=== PATIENT | male | born 1955 | race Two or more races ===

== ENCOUNTER 2018-08-16 12:20 | Outpatient (CLI) | payer BC, OTHER ==
[2018-08-16 16:31] LABS: APPEARANCE,URINE TURBID (CLEAR); BILIRUBIN,URINE NEGATIVE (NEGATIVE); BLOOD, URINE NEGATIVE Ery/uL (NEGATIVE); COLOR,URINE YELLOW (YELLOW); KETONES,URINE NEGATIVE (NEGATIVE); LEUKOCYTE ESTERASE ,URINE NEGATIVE (NEGATIVE); NITRITE, URINE NEGATIVE (NEGATIVE); PH,URINE 5.5 (5.0-8.0); PROTEIN,URINE NEGATIVE (NEGATIVE); UGLUCOSE NEGATIVE (NEGATIVE); UROBILINOGEN,URINE 0.2 EU/dL (0.2)
[2018-08-16 16:33] LABS: BASOPHILS # (AUTO) 0.1 /CMM (0.0-0.2); BASOPHILS % (AUTO) 0.8 % (0.0-2.0); EOSINOPHILS % (AUTO) 2.8 % (0.0-6.0); HEMATOCRIT 43 % (39-51); HEMOGLOBIN 14.7 g/dL (13.5-17.5); LYMPHOCYTES # (AUTO) 1.6 /CMM (0.8-4.8); LYMPHOCYTES % (AUTO) 23.2 % (20.0-44.0); MEAN CORPUSCULAR HGB CONC 35 g/dl (31.0-36.0); MEAN CORPUSCULAR VOLUME 85 fL (80-96); MONOCYTES # (AUTO) 0.5 /CMM (0.1-1.30); MONOCYTES % (AUTO) 7.5 % (2.0-12.0); NEUTROPHILS # (AUTO) 4.4 /CMM (1.8-8.9); NEUTROPHILS % (AUTO) 65.7 % (43.0-81.0); PLATELET COUNT (AUTO) 292 /CMM (150-450); RED BLOOD CELL COUNT(AUTO) 5.01 MIL/uL (4.5-6.0); WHITE BLOOD COUNT (AUTO) 6.8 K/uL (4.3-11.0)
[2018-08-16 16:47] LABS: RBC,URINE 0-2 /HPF (0-2); WBC,URINE 0-2 /HPF (0-3)
[2018-08-16 16:48] LABS: SQUAMOUS EPITHELIAL CELL,UR Rare /HPF (None Seen); URINE AMORPHOUS URATE Many /HPF (None Seen)
[2018-08-16 16:49] LABS: BACTERIA,URINE Few /HPF (None Seen)
[2018-08-16 17:47] LABS: ALBUMIN 3.8 g/dL (3.4-5.0); CALCIUM, SERUM 8.9 mg/dL (8.5-10.1); POTASSIUM 3.8 mmol/L (3.5-5.1)
[2018-08-16 18:09] LABS: BILIRUBIN,TOTAL 0.4 mg/dL (0.2-1.0); THYROID STIMULATING HORMONE 7.5 uIU/mL (0.358-3.74)
[2018-08-16 18:10] LABS: FREE T4 (FREE THYROXINE) 0.74 ng/dL (0.76-1.46); TOTAL PROTEIN, SERUM 7.3 g/dL (6.4-8.2)
[2018-08-16 18:40] LABS: URIC ACID 4.8 mg/dL (2.6-7.2)
[2018-08-17 11:11] LABS: FOLIC ACID > 20.0 ng/mL (>3.0)
[2018-08-30 10:00] LABS: THYROID STIMULATING HORMONE 2.743 uIU/mL (0.358-3.74)
== END 2018-08-16 23:59 | disposition home or self-care (01) ==
LOC: LAB 12:20
PROVIDERS: ATTEND Legal Medicine
DX: Z00.00 Encounter for general adult medical examination without abnormal findings (principal)
CPT/HCPCS: 36415; 80053-TC; 80061-TC; 81000-TC; 82306; 82626; 82728-TC; 83540-TC; 84402; 84403; 84439-TC; 84443-TC; 84550-TC; 85025-TC

== ENCOUNTER 2018-08-30 07:44 | Outpatient (CLI) | payer BC ==
[2018-08-30 13:09] LABS: THYROID STIMULATING HORMONE 2.743 uIU/mL (0.358-3.74)
[2018-08-31 08:07] LABS: T3, FREE 3.1 pg/mL (2.0-4.4); THYROID PEROXIDASE (TPO) AB 12 IU/mL (0-34)
[2018-08-31 12:12] LABS: ACTH, PLASMA 22.4 pg/mL (7.2-63.3)
== END 2018-08-30 23:59 | disposition home or self-care (01) ==
LOC: US 07:44
PROVIDERS: ATTEND Legal Medicine
DX: E04.2 Nontoxic multinodular goiter (principal)
CPT/HCPCS: 36415; 76536-TC; 82024; 82533; 82626; 84402; 84403; 84439-TC; 84443-TC; 84481; 86376; 86800

== ENCOUNTER 2018-10-18 07:28 | Outpatient (CLI) | payer BC ==
[2018-10-18 09:15] LABS: BASOPHILS % (AUTO) 0.6 % (0.0-2.0); EOSINOPHILS % (AUTO) 3.1 % (0.0-6.0); HEMATOCRIT 45 % (39-51); HEMOGLOBIN 15.2 g/dL (13.5-17.5); LYMPHOCYTES # (AUTO) 1.8 /CMM (0.8-4.8); LYMPHOCYTES % (AUTO) 25.4 % (20.0-44.0); MEAN CORPUSCULAR HGB CONC 34 g/dl (31.0-36.0); MEAN CORPUSCULAR VOLUME 85 fL (80-96); MONOCYTES # (AUTO) 0.5 /CMM (0.1-1.30); MONOCYTES % (AUTO) 7.3 % (2.0-12.0); NEUTROPHILS # (AUTO) 4.5 /CMM (1.8-8.9); NEUTROPHILS % (AUTO) 63.6 % (43.0-81.0); PLATELET COUNT (AUTO) 280 /CMM (150-450); RED BLOOD CELL COUNT(AUTO) 5.27 MIL/uL (4.5-6.0)
[2018-10-18 09:17] LABS: ALBUMIN 3.9 g/dL (3.4-5.0); BILIRUBIN,TOTAL 0.5 mg/dL (0.2-1.0); CALCIUM, SERUM 9.4 mg/dL (8.5-10.1); CREATININE 1.2 mg/dL (0.6-1.3); POTASSIUM 3.9 mmol/L (3.5-5.1); TOTAL PROTEIN, SERUM 7.3 g/dL (6.4-8.2)
[2018-10-18 09:28] LABS: PROSTATE SPECIFIC ANTIGEN SCR 9.66 ng/mL (0.00-4.00); THYROID STIMULATING HORMONE 2.672 uIU/mL (0.358-3.74)
[2018-10-19 08:06] LABS: T3, FREE 3.3 pg/mL (2.0-4.4); THYROID PEROXIDASE (TPO) AB 11 IU/mL (0-34)
[2018-10-19 12:08] LABS: ACTH, PLASMA 26.3 pg/mL (7.2-63.3)
== END 2018-10-18 23:59 | disposition home or self-care (01) ==
LOC: LAB 07:28
PROVIDERS: ATTEND Legal Medicine
DX: E11.9 Type 2 diabetes mellitus without complications (principal); E78.5 Hyperlipidemia, unspecified; E03.9 Hypothyroidism, unspecified; D64.9 Anemia, unspecified; E55.9 Vitamin D deficiency, unspecified; E06.3 Autoimmune thyroiditis
CPT/HCPCS: 36415; 80053-TC; 80061-TC; 82024; 82306; 82533; 82626; 84153-TC; 84402; 84403; 84439-TC; 84443-TC; 84481; 85025-TC; 85652-TC; 86376; 86800

== ENCOUNTER 2019-02-03 13:50 | Outpatient (CLI) | payer BC | END 2019-02-03 23:59 | disposition home or self-care (01) | LOC: WOU 13:50 | PROVIDERS: ATTEND Surgery | DX: Z01.818 Encounter for other preprocedural examination (principal); K43.9 Ventral hernia without obstruction or gangrene; R10.9 Unspecified abdominal pain | CPT/HCPCS: G0463; J0690; J2405; J2704; J2710; J2765; J3490 ==

== ENCOUNTER 2019-05-05 12:58 | Emergency (ER) | payer BC, OTHER ==
[~2019-05-05] VITALS: Ht 170.2 cm; Wt 79.8 kg
--- NOTE | 2019-05-05 13:04 | NUR ---
lac on the left eye brow s/p syncopal episode midnight, pt alert, awake, -sob, nad noted, pt on monitor, vss, nad noted, pending md malik
[2019-05-05 13:43] LABS: BASOPHILS % (AUTO) 1.1 % (0.0-2.0); EOSINOPHILS % (AUTO) 0.7 % (0.0-6.0); HEMATOCRIT 45 % (39-51); HEMOGLOBIN 15.1 g/dL (13.5-17.5); LYMPHOCYTES # (AUTO) 0.9 /CMM (0.8-4.8); MEAN CORPUSCULAR HGB CONC 34 g/dl (31.0-36.0); MEAN CORPUSCULAR VOLUME 85 fL (80-96); MONOCYTES # (AUTO) 0.5 /CMM (0.1-1.30); MONOCYTES % (AUTO) 13.1 % (2.0-12.0); NEUTROPHILS # (AUTO) 2.5 /CMM (1.8-8.9); NEUTROPHILS % (AUTO) 63.1 % (43.0-81.0); PLATELET COUNT (AUTO) 227 /CMM (150-450); RED BLOOD CELL COUNT(AUTO) 5.31 MIL/uL (4.5-6.0); WHITE BLOOD COUNT (AUTO) 3.9 K/uL (4.3-11.0)
[2019-05-05 13:54] LABS: CALCIUM, SERUM 8.9 mg/dL (8.5-10.1); CARBON DIOXIDE 29 mmol/L (21-32); CHLORIDE 104 mmol/L (98-107); CREATININE 1.3 mg/dL (0.6-1.3); GLUCOSE 113 mg/dL (74-106); POTASSIUM 4.5 mmol/L (3.5-5.1); SODIUM SERUM 141 mmol/L (136-145); UREA NITROGEN, BLOOD 22 mg/dL (7-18)
--- NOTE | 2019-05-05 14:30 | NUR ---
Patient discharged to home in stable condition. Written and verbal after care instructions given. Patient verbalizes understanding of instruction. IV removed. Catheter intact and site benign. Pressure and 4x4 applied to site. No bleeding noted.
[2019-05-05 14:31] VITALS: BP 119/69
== END 2019-05-05 14:32 | disposition home or self-care (01) ==
LOC: ER 13:00
DX: S01.81XA Laceration without foreign body of other part of head, initial encounter (principal); R55 Syncope and collapse; W18.39XA Other fall on same level, initial encounter; Y93.89 Activity, other specified; Y92.89 Other specified places as the place of occurrence of the external cause; Y99.8 Other external cause status
CPT/HCPCS: 36415; 80048-TC; 84443-TC; 84484-TC; 85025-TC

== ENCOUNTER 2019-05-19 14:45 | Outpatient (CLI) | payer BC, OTHER | END 2019-05-19 23:59 | disposition home or self-care (01) | LOC: WOU 14:45 | PROVIDERS: ATTEND Surgery | DX: K43.9 Ventral hernia without obstruction or gangrene (principal); R10.9 Unspecified abdominal pain | CPT/HCPCS: G0463 ==

== ENCOUNTER 2019-06-02 11:03 | Outpatient (CLI) | payer BC ==
[2019-06-02 12:44] LABS: BASOPHILS % (AUTO) 0.6 % (0.0-2.0); HEMATOCRIT 44 % (39-51); HEMOGLOBIN 14.6 g/dL (13.5-17.5); LYMPHOCYTES # (AUTO) 1.5 /CMM (0.8-4.8); LYMPHOCYTES % (AUTO) 22.5 % (20.0-44.0); MEAN CORPUSCULAR HGB CONC 34 g/dl (31.0-36.0); MEAN CORPUSCULAR VOLUME 85 fL (80-96); MONOCYTES # (AUTO) 0.5 /CMM (0.1-1.30); MONOCYTES % (AUTO) 7.9 % (2.0-12.0); NEUTROPHILS # (AUTO) 4.3 /CMM (1.8-8.9); PLATELET COUNT (AUTO) 249 /CMM (150-450); RED BLOOD CELL COUNT(AUTO) 5.14 MIL/uL (4.5-6.0); WHITE BLOOD COUNT (AUTO) 6.6 K/uL (4.3-11.0)
[2019-06-02 13:03] LABS: APPEARANCE,URINE CLEAR (CLEAR); BILIRUBIN,URINE NEGATIVE (NEGATIVE); BLOOD, URINE NEGATIVE Ery/uL (NEGATIVE); COLOR,URINE YELLOW (YELLOW); KETONES,URINE NEGATIVE (NEGATIVE); LEUKOCYTE ESTERASE ,URINE NEGATIVE (NEGATIVE); NITRITE, URINE NEGATIVE (NEGATIVE); PH,URINE 5.5 (5.0-8.0); PROTEIN,URINE NEGATIVE (NEGATIVE); UGLUCOSE NEGATIVE (NEGATIVE); UROBILINOGEN,URINE 0.2 EU/dL (0.2)
[2019-06-02 13:10] LABS: ALANINE AMINOTRANSFERASE 38 U/L (12-78); ALBUMIN 3.8 g/dL (3.4-5.0); ALKALINE PHOSPHATASE 72 U/L (46-116); AMYLASE 75 U/L (25-115); ASPARTATE AMINOTRANSFERASE 18 U/L (15-37); BILIRUBIN,TOTAL 0.5 mg/dL (0.2-1.0); CARBON DIOXIDE 30 mmol/L (21-32); CHLORIDE 103 mmol/L (98-107); CREATININE 1.1 mg/dL (0.6-1.3); GLUCOSE 91 mg/dL (74-106); LIPASE 282 U/L (73-393); POTASSIUM 3.9 mmol/L (3.5-5.1); SODIUM SERUM 139 mmol/L (136-145); UREA NITROGEN, BLOOD 21 mg/dL (7-18)
[2019-06-02 13:11] LABS: IRON, SERUM 72 ug/dl (50-175); TOTAL IRON BINDING CAPACITY 326 ug/dl (250-450)
[2019-06-02 13:20] LABS: CHOLESTEROL 214 mg/dL (<200); FERRITIN 179 ng/mL (8-388); HDL CHOLESTEROL 61 mg/dL (40-60); LDL 135 mg/dL (0-99); PROSTATE SPECIFIC ANTIGEN SCR 12.37 ng/mL (0.00-4.00); THYROID STIMULATING HORMONE 2.375 uIU/mL (0.358-3.74); TRIGLYCERIDES 133 mg/dL (30-150); URIC ACID 3.9 mg/dL (2.6-7.2)
[2019-06-02 13:21] LABS: C-REACTIVE PROTEIN < 0.2 mg/dL (0.0-0.9)
[2019-06-03 05:06] LABS: THYROID PEROXIDASE (TPO) AB 12 IU/mL (0-34)
[2019-06-03 10:13] LABS: FOLIC ACID 15.9 ng/mL (>3.0)
== END 2019-06-02 23:59 | disposition home or self-care (01) ==
LOC: LAB 11:03
PROVIDERS: ATTEND Legal Medicine
DX: Z01.818 Encounter for other preprocedural examination (principal); K43.9 Ventral hernia without obstruction or gangrene; I10 Essential (primary) hypertension; E78.5 Hyperlipidemia, unspecified; E03.9 Hypothyroidism, unspecified; D64.9 Anemia, unspecified; N40.0 Benign prostatic hyperplasia without lower urinary tract symptoms; E55.9 Vitamin D deficiency, unspecified
CPT/HCPCS: 36415; 71046; 80053-TC; 80061-TC; 81000-TC; 82150-TC; 82306; 82626; 82728-TC; 83540-TC; 83690-TC; 84153-TC; 84402; 84403; 84439-TC; 84443-TC; 84550-TC; 85025-TC; 85652-TC; 86140-TC; 86376; 86800; 87086-TC

== ENCOUNTER 2019-06-17 06:36 | Day surgery (SDC) | payer BC ==
[~2019-06-17 06:36] MED LIST: ACETAMINOPHEN ES 500 MG TABLET ONE
[2019-06-17] MEDS ORDERED: FENTANYL PF 250MCG/5ML AMPUL ONE (08:25)
[2019-06-17] MEDS ORDERED: MIDAZOLAM HCL 2 MG/2ML VIAL ONE (08:25)
[2019-06-17] MEDS ORDERED: FENTANYL PF 100MCG/2ML AMPUL ONE (08:25)
[2019-06-17] MEDS ORDERED: ROCURONIUM BROMIDE 50 MG/5 ML ONE (08:26)
[2019-06-17] MEDS ORDERED: FAMOTIDINE/PF INJ 20 MG/2 ML VIAL IV ONE (08:26)
[2019-06-17] MEDS ORDERED: BUPIVACAINE MPF 0.5% W/EPI INJ 30 ML VIAL ONE (08:42)
[2019-06-17] MEDS ORDERED: LIDOCAINE HCL/PF 1% 30 ML SDV ONE (08:42)
[2019-06-17] MEDS ORDERED: ACETAMINOPHEN 325 MG TABLET PO PRN (10:00)
[2019-06-17] MEDS ORDERED: HYDROCODONE/APAP 5/325MG 1 EACH TABLET PO PRN (10:00)
[2019-06-17] MEDS ORDERED: MORPHINE SULFATE INJ 2 MG/ML DISP.SYRIN IV PRN (10:00)
[2019-06-17] MEDS ORDERED: IBUPROFEN 600 MG TABLET PO PRN (10:00)
[2019-06-17] MEDS ORDERED: ONDANSETRON HCL/PF 4 MG/2 ML VIAL IVP PRN (10:00)
[2019-06-17] MEDS ORDERED: ONDANSETRON HCL/PF 4 MG/2 ML VIAL ONE (12:32)
== END 2019-06-17 12:59 | disposition home or self-care (01) ==
LOC: DS 06:36
PROVIDERS: ATTEND Surgery
DX: K43.9 Ventral hernia without obstruction or gangrene (principal); E03.9 Hypothyroidism, unspecified; E78.5 Hyperlipidemia, unspecified; Z88.2 Allergy status to sulfonamides; Z88.1 Allergy status to other antibiotic agents; Z79.899 Other long term (current) drug therapy
CPT/HCPCS: 36415; 49560; 49568; 82962; 85610; 85730; 88302; C1781; J2250; J2405; J3010 ×2; J3490 ×3; J0690; J2704; J2710; J2765

== ENCOUNTER 2019-06-30 14:15 | Outpatient (CLI) | payer BC | END 2019-06-30 23:59 | disposition home or self-care (01) | LOC: WOU 14:15 | PROVIDERS: ATTEND Surgery | DX: Z48.815 Encounter for surgical aftercare following surgery on the digestive system (principal); R10.9 Unspecified abdominal pain | CPT/HCPCS: G0463 ==

== ENCOUNTER 2019-08-11 14:05 | Outpatient (CLI) | payer BC | END 2019-08-11 23:59 | disposition home or self-care (01) | LOC: WOU 14:05 | PROVIDERS: ATTEND Surgery | DX: Z48.815 Encounter for surgical aftercare following surgery on the digestive system (principal); R10.9 Unspecified abdominal pain | CPT/HCPCS: G0463 ==

== ENCOUNTER 2019-09-08 13:43 | Outpatient (CLI) | payer BC ==
[2019-09-08 14:34] LABS: APPEARANCE,URINE CLEAR (CLEAR); BILIRUBIN,URINE NEGATIVE (NEGATIVE); BLOOD, URINE NEGATIVE Ery/uL (NEGATIVE); COLOR,URINE YELLOW (YELLOW); KETONES,URINE NEGATIVE (NEGATIVE); LEUKOCYTE ESTERASE ,URINE NEGATIVE (NEGATIVE); NITRITE, URINE NEGATIVE (NEGATIVE); PH,URINE 5.5 (5.0-8.0); PROTEIN,URINE NEGATIVE (NEGATIVE); UGLUCOSE NEGATIVE (NEGATIVE); UROBILINOGEN,URINE 0.2 EU/dL (0.2)
[2019-09-08 14:40] LABS: BASOPHILS # (AUTO) 0.2 /CMM (0.0-0.2); BASOPHILS % (AUTO) 2.4 % (0.0-2.0); EOSINOPHILS % (AUTO) 2.6 % (0.0-6.0); HEMATOCRIT 45 % (39-51); LYMPHOCYTES # (AUTO) 1.7 /CMM (0.8-4.8); LYMPHOCYTES % (AUTO) 22.8 % (20.0-44.0); MEAN CORPUSCULAR HGB CONC 34 g/dl (31.0-36.0); MEAN CORPUSCULAR VOLUME 85 fL (80-96); MONOCYTES # (AUTO) 0.5 /CMM (0.1-1.30); MONOCYTES % (AUTO) 6.9 % (2.0-12.0); NEUTROPHILS % (AUTO) 65.3 % (43.0-81.0); PLATELET COUNT (AUTO) 280 /CMM (150-450); RED BLOOD CELL COUNT(AUTO) 5.21 MIL/uL (4.5-6.0); WHITE BLOOD COUNT (AUTO) 7.6 K/uL (4.3-11.0)
[2019-09-08 14:50] LABS: BILIRUBIN,TOTAL 0.4 mg/dL (0.2-1.0); CREATININE 1.2 mg/dL (0.6-1.3); POTASSIUM 3.7 mmol/L (3.5-5.1); TOTAL PROTEIN, SERUM 7.4 g/dL (6.4-8.2)
[2019-09-08 15:04] LABS: PROSTATE SPECIFIC ANTIGEN SCR 11.23 ng/mL (0.00-4.00); THYROID STIMULATING HORMONE 2.63 uIU/mL (0.358-3.74); URIC ACID 4.2 mg/dL (2.6-7.2)
[2019-09-09 08:06] LABS: T3, FREE 2.8 pg/mL (2.0-4.4); THYROID PEROXIDASE (TPO) AB 9 IU/mL (0-34)
== END 2019-09-08 23:59 | disposition home or self-care (01) ==
LOC: WOU 13:43
PROVIDERS: ATTEND Surgery
DX: Z00.00 Encounter for general adult medical examination without abnormal findings (principal); Z48.815 Encounter for surgical aftercare following surgery on the digestive system; N40.0 Benign prostatic hyperplasia without lower urinary tract symptoms; E11.9 Type 2 diabetes mellitus without complications; E03.9 Hypothyroidism, unspecified; D64.9 Anemia, unspecified
CPT/HCPCS: 36415; 80053-TC; 80061-TC; 81000-TC; 82306; 82533; 82728-TC; 83540-TC; 84153-TC; 84402; 84403; 84439-TC; 84443-TC; 84481; 84550-TC; 85025-TC; 86376; 86800; 87086-TC; G0463

== ENCOUNTER → 2019-09-26 | Outpatient (CLI) | payer BC | END | disposition home or self-care (01) | LOC: MRI 10:14 | PROVIDERS: ATTEND Legal Medicine | DX: S43.432A Superior glenoid labrum lesion of left shoulder, initial encounter (principal); M65.30 Trigger finger, unspecified finger; M19.012 Primary osteoarthritis, left shoulder; M75.82 Other shoulder lesions, left shoulder; X58.XXXA Exposure to other specified factors, initial encounter; Y93.89 Activity, other specified; Y92.89 Other specified places as the place of occurrence of the external cause; Y99.8 Other external cause status | CPT/HCPCS: 73221-TC ==

== ENCOUNTER 2019-10-22 16:09 | Outpatient (CLI) | payer BC ==
[2019-10-22 16:32] LABS: APPEARANCE,URINE SL CLOUDY (CLEAR); BILIRUBIN,URINE NEGATIVE (NEGATIVE); BLOOD, URINE NEGATIVE Ery/uL (NEGATIVE); COLOR,URINE YELLOW (YELLOW); KETONES,URINE NEGATIVE (NEGATIVE); LEUKOCYTE ESTERASE ,URINE NEGATIVE (NEGATIVE); NITRITE, URINE NEGATIVE (NEGATIVE); PROTEIN,URINE NEGATIVE (NEGATIVE); UGLUCOSE NEGATIVE (NEGATIVE)
[2019-10-22 16:38] LABS: BACTERIA,URINE Few /HPF (None Seen); RBC,URINE 0-2 /HPF (0-2); SQUAMOUS EPITHELIAL CELL,UR Few /HPF (None Seen); URINE AMORPHOUS PHOSPHATES Moderate /HPF (None Seen); WBC,URINE 0-2 /HPF (0-3)
== END 2019-10-22 23:59 | disposition home or self-care (01) ==
LOC: LAB 16:09
PROVIDERS: ATTEND Legal Medicine
DX: R30.0 Dysuria (principal)
CPT/HCPCS: 81000-TC; 87070-TC; 87086-TC

== ENCOUNTER 2020-04-09 13:59 | Outpatient (CLI) | payer BC ==
[2020-04-09 16:19] LABS: BASOPHILS # (AUTO) 0.1 /CMM (0.0-0.2); BASOPHILS % (AUTO) 1.2 % (0.0-2.0); EOSINOPHILS % (AUTO) 2.5 % (0.0-6.0); HEMATOCRIT 45 % (39-51); LYMPHOCYTES # (AUTO) 1.6 /CMM (0.8-4.8); LYMPHOCYTES % (AUTO) 21.4 % (20.0-44.0); MEAN CORPUSCULAR HGB CONC 34 g/dl (31.0-36.0); MEAN CORPUSCULAR VOLUME 84 fL (80-96); MONOCYTES # (AUTO) 0.6 /CMM (0.1-1.30); MONOCYTES % (AUTO) 8.1 % (2.0-12.0); NEUTROPHILS # (AUTO) 4.9 /CMM (1.8-8.9); NEUTROPHILS % (AUTO) 66.8 % (43.0-81.0); PLATELET COUNT (AUTO) 286 /CMM (150-450); WHITE BLOOD COUNT (AUTO) 7.3 K/uL (4.3-11.0)
[2020-04-09 16:33] LABS: BILIRUBIN,URINE NEGATIVE (NEGATIVE); BLOOD, URINE NEGATIVE Ery/uL (NEGATIVE); COLOR,URINE YELLOW (YELLOW); LEUKOCYTE ESTERASE ,URINE NEGATIVE (NEGATIVE); NITRITE, URINE NEGATIVE (NEGATIVE); PH,URINE 6.5 (5.0-8.0); PROTEIN,URINE NEGATIVE (NEGATIVE); UGLUCOSE NEGATIVE (NEGATIVE); UROBILINOGEN,URINE 0.2 EU/dL (0.2)
[2020-04-09 16:38] LABS: ALBUMIN 3.9 g/dL (3.4-5.0); BILIRUBIN,TOTAL 0.5 mg/dL (0.2-1.0); CALCIUM, SERUM 8.8 mg/dL (8.5-10.1); POTASSIUM 3.8 mmol/L (3.5-5.1); TOTAL PROTEIN, SERUM 7.3 g/dL (6.4-8.2)
[2020-04-09 16:49] LABS: BACTERIA,URINE None seen /HPF (None Seen); RBC,URINE 0-2 /HPF (0-2); SQUAMOUS EPITHELIAL CELL,UR 0-2 /HPF (None Seen); WBC,URINE 0-2 /HPF (0-3)
[2020-04-09 16:50] LABS: URINE AMORPHOUS URATE Moderate /HPF (None Seen)
[2020-04-09 16:54] LABS: C-REACTIVE PROTEIN 0.3 mg/dL (0.0-0.9); FREE T4 (FREE THYROXINE) 0.89 ng/dL (0.76-1.46); PROSTATE SPECIFIC ANTIGEN SCR 10.88 ng/mL (0.00-4.00); THYROID STIMULATING HORMONE 1.994 uIU/mL (0.358-3.74); URIC ACID 4.5 mg/dL (2.6-7.2)
[2020-04-11 09:12] LABS: T3, FREE 3.2 pg/mL (2.0-4.4)
== END 2020-04-09 23:59 | disposition home or self-care (01) ==
LOC: LAB 13:59
PROVIDERS: ATTEND Legal Medicine
DX: I12.9 Hypertensive chronic kidney disease with stage 1 through stage 4 chronic kidney disease, or unspecified chronic kidney disease (principal); E11.22 Type 2 diabetes mellitus with diabetic chronic kidney disease; N18.9 Chronic kidney disease, unspecified; E03.9 Hypothyroidism, unspecified; D64.9 Anemia, unspecified; N40.0 Benign prostatic hyperplasia without lower urinary tract symptoms; E55.9 Vitamin D deficiency, unspecified; E29.1 Testicular hypofunction; Z00.00 Encounter for general adult medical examination without abnormal findings
CPT/HCPCS: 80053-TC; 80061-TC; 81001; 82306; 83540-TC; 84153-TC; 84154-TC; 84402; 84403; 84439-TC; 84443-TC; 84481; 84550-TC; 85025-TC; 85652-TC; 86140-TC

== ENCOUNTER 2020-04-15 12:02 | Outpatient (CLI) | payer BC | END 2020-04-15 23:59 | disposition home or self-care (01) | LOC: MRI 12:02 | PROVIDERS: ATTEND Legal Medicine | DX: S73.102A Unspecified sprain of left hip, initial encounter (principal); M21.372 Foot drop, left foot; M47.817 Spondylosis without myelopathy or radiculopathy, lumbosacral region; M48.07 Spinal stenosis, lumbosacral region; M51.27 Other intervertebral disc displacement, lumbosacral region; X58.XXXA Exposure to other specified factors, initial encounter; Y93.89 Activity, other specified; Y92.89 Other specified places as the place of occurrence of the external cause; Y99.8 Other external cause status | CPT/HCPCS: 72148-TC; 73721-TC ==

== ENCOUNTER 2020-11-26 12:58 | Outpatient (CLI) | payer BC ==
[2020-11-26 14:13] LABS: BASOPHILS % (AUTO) 0.6 % (0.0-2.0); EOSINOPHILS % (AUTO) 1.8 % (0.0-6.0); HEMATOCRIT 45 % (39-51); LYMPHOCYTES # (AUTO) 1.6 K/uL (0.8-4.8); LYMPHOCYTES % (AUTO) 19.4 % (20.0-44.0); MEAN CORPUSCULAR HGB CONC 33 g/dl (31.0-36.0); MEAN CORPUSCULAR VOLUME 86 fL (80-96); MONOCYTES # (AUTO) 0.5 K/uL (0.1-1.30); MONOCYTES % (AUTO) 5.8 % (2.0-12.0); NEUTROPHILS # (AUTO) 5.9 K/uL (1.8-8.9); NEUTROPHILS % (AUTO) 72.4 % (43.0-81.0); PLATELET COUNT (AUTO) 291 K/uL (150-450); RED BLOOD CELL COUNT(AUTO) 5.26 MIL/uL (4.5-6.0); WHITE BLOOD COUNT (AUTO) 8.1 K/uL (4.3-11.0)
[2020-11-26 14:33] LABS: BILIRUBIN,URINE NEGATIVE (NEGATIVE); COLOR,URINE YELLOW (YELLOW); LEUKOCYTE ESTERASE ,URINE NEGATIVE (NEGATIVE); NITRITE, URINE NEGATIVE (NEGATIVE); PROTEIN,URINE NEGATIVE (NEGATIVE); UGLUCOSE NEGATIVE (NEGATIVE); UROBILINOGEN,URINE 0.2 EU/dL (0.2)
[2020-11-26 14:59] LABS: IRON, SERUM 75 ug/dl (50-175); TOTAL IRON BINDING CAPACITY 316 ug/dl (250-450)
[2020-11-26 15:26] LABS: ALBUMIN 3.7 g/dL (3.4-5.0); ALKALINE PHOSPHATASE 82 U/L (46-116); ASPARTATE AMINOTRANSFERASE 21 U/L (15-37); BILIRUBIN,TOTAL 0.7 mg/dL (0.2-1.0); CALCIUM, SERUM 8.7 mg/dL (8.5-10.1); CARBON DIOXIDE 31 mmol/L (21-32); CHLORIDE 105 mmol/L (98-107); CREATININE 1.2 mg/dL (0.6-1.3); GLUCOSE 148 mg/dL (74-106); POTASSIUM 3.7 mmol/L (3.5-5.1); SODIUM SERUM 145 mmol/L (136-145); TOTAL PROTEIN, SERUM 7.4 g/dL (6.4-8.2); UREA NITROGEN, BLOOD 16 mg/dL (7-18)
[2020-11-26 15:32] LABS: CHOLESTEROL 231 mg/dL (<200); FERRITIN 150 ng/mL (8-388); FREE T4 (FREE THYROXINE) 0.89 ng/dL (0.76-1.46); HDL CHOLESTEROL 65 mg/dL (40-60); LDL 145 mg/dL (0-99); PROSTATE SPECIFIC ANTIGEN SCR 11.47 ng/mL (0.00-4.00); THYROID STIMULATING HORMONE 2.588 uIU/mL (0.358-3.74); TRIGLYCERIDES 128 mg/dL (30-150); URIC ACID 4.3 mg/dL (2.6-7.2)
[2020-11-26 15:36] LABS: ALANINE AMINOTRANSFERASE 27 U/L (12-78)
[2020-11-26 15:44] LABS: C-REACTIVE PROTEIN < 0.2 mg/dL (0.0-0.9)
[2020-11-28 11:06] LABS: T3, FREE 3.2 pg/mL (2.0-4.4); THYROID PEROXIDASE (TPO) AB <8 IU/mL (0-34)
== END 2020-11-26 23:59 | disposition home or self-care (01) ==
LOC: LAB 12:58
PROVIDERS: ATTEND Legal Medicine
DX: E78.5 Hyperlipidemia, unspecified (principal); Z00.00 Encounter for general adult medical examination without abnormal findings
CPT/HCPCS: 36415; 80053-TC; 80061-TC; 82306; 82607-TC; 82626; 82728-TC; 83540-TC; 84153-TC; 84402; 84403; 84439-TC; 84443-TC; 84481; 84550-TC; 85025-TC; 85652-TC; 86140-TC; 86376; 87086-TC

== ENCOUNTER 2021-06-24 11:11 | Outpatient (CLI) | payer BC ==
[2021-06-24 12:25] LABS: BASOPHILS # (AUTO) 0.1 K/uL (0.0-0.2); BASOPHILS % (AUTO) 0.7 % (0.0-2.0); EOSINOPHILS % (AUTO) 1.7 % (0.0-6.0); HEMATOCRIT 45 % (39-51); LYMPHOCYTES # (AUTO) 1.7 K/uL (0.8-4.8); LYMPHOCYTES % (AUTO) 24.2 % (20.0-44.0); MEAN CORPUSCULAR HGB CONC 34 g/dl (31.0-36.0); MEAN CORPUSCULAR VOLUME 84 fL (80-96); MONOCYTES # (AUTO) 0.4 K/uL (0.1-1.30); NEUTROPHILS # (AUTO) 4.7 K/uL (1.8-8.9); NEUTROPHILS % (AUTO) 67.4 % (43.0-81.0); PLATELET COUNT (AUTO) 266 K/uL (150-450); RED BLOOD CELL COUNT(AUTO) 5.29 MIL/uL (4.5-6.0)
[2021-06-24 13:06] LABS: FREE T4 (FREE THYROXINE) 0.86 ng/dL (0.76-1.46); PROSTATE SPECIFIC ANTIGEN SCR 13.74 ng/mL (0.00-4.00); THYROID STIMULATING HORMONE 3.329 uIU/mL (0.358-3.74); URIC ACID 4.4 mg/dL (2.6-7.2)
[2021-06-24 13:10] LABS: BILIRUBIN,URINE NEGATIVE (NEGATIVE); COLOR,URINE YELLOW (YELLOW); LEUKOCYTE ESTERASE ,URINE NEGATIVE (NEGATIVE); NITRITE, URINE NEGATIVE (NEGATIVE); PH,URINE 5.5 (5.0-8.0); PROTEIN,URINE NEGATIVE (NEGATIVE); UGLUCOSE NEGATIVE (NEGATIVE); UROBILINOGEN,URINE 0.2 EU/dL (0.2)
[2021-06-24 13:13] LABS: ALBUMIN 4.1 g/dL (3.4-5.0); BILIRUBIN,TOTAL 0.6 mg/dL (0.2-1.0); CREATININE 1.1 mg/dL (0.6-1.3); TOTAL PROTEIN, SERUM 7.8 g/dL (6.4-8.2)
== END 2021-06-24 23:59 | disposition home or self-care (01) ==
LOC: LAB 11:11
PROVIDERS: ATTEND Legal Medicine
DX: E11.9 Type 2 diabetes mellitus without complications (principal); N40.0 Benign prostatic hyperplasia without lower urinary tract symptoms; E55.9 Vitamin D deficiency, unspecified; E78.5 Hyperlipidemia, unspecified; E03.9 Hypothyroidism, unspecified; D64.9 Anemia, unspecified; Z00.00 Encounter for general adult medical examination without abnormal findings
CPT/HCPCS: 80053-TC; 80061-TC; 81001; 82306; 82607-TC; 83540-TC; 84153-TC; 84402; 84403; 84439-TC; 84443-TC; 84550-TC; 85025-TC; 86592; 86694; 87086-TC; 87491; 87591; 87806

== ENCOUNTER → 2021-10-07 | Outpatient (CLI) | payer BC | END | disposition home or self-care (01) | LOC: MRI 11:28 | PROVIDERS: ATTEND Legal Medicine | DX: M19.012 Primary osteoarthritis, left shoulder (principal); R51.9 Headache, unspecified; M25.512 Pain in left shoulder | CPT/HCPCS: 70551-TC; 73221-TC ==

== ENCOUNTER 2021-10-14 14:55 | Emergency (ER) | payer BC, OTHER ==
[~2021-10-14] VITALS: Ht 177.8 cm; Wt 81.6 kg
--- NOTE | 2021-10-14 14:59 | NUR ---
BIBS C/O DULL HEADACHE, DIZZINESS AND RAPID HR "OVER A HUNDRED" STARTED THIS MORNING. DENIES CHEST PAIN. TO ER BED 7, HOOKED TO SUPERVISOR OF INSTRUCTION, NOTED SINUS TACHYCARDIC, CHANGED TO HOSP GOWN,W ARM BLANKET PROVIDED. AWAITING MD CALLEJAS
--- NOTE | 2021-10-14 15:17 | NUR ---
DR BENTON AT BEDSIDE
[2021-10-14] MEDS ORDERED: IV NS 0.9% 1,000 ML BAG IV ONE (15:30)
--- NOTE | 2021-10-14 15:31 | NUR ---
X-RAY TECH. AT BED SIDE
[2021-10-14 15:48] LABS: BASOPHILS # (AUTO) 0.1 K/uL (0.0-0.2); BASOPHILS % (AUTO) 0.6 % (0.0-2.0); EOSINOPHILS % (AUTO) 0.6 % (0.0-6.0); HEMATOCRIT 42 % (39-51); HEMOGLOBIN 14.2 g/dL (13.5-17.5); LYMPHOCYTES # (AUTO) 0.5 K/uL (0.8-4.8); LYMPHOCYTES % (AUTO) 4.7 % (20.0-44.0); MEAN CORPUSCULAR HGB CONC 34 g/dl (31.0-36.0); MEAN CORPUSCULAR VOLUME 83 fL (80-96); MONOCYTES # (AUTO) 0.9 K/uL (0.1-1.30); MONOCYTES % (AUTO) 8.7 % (2.0-12.0); NEUTROPHILS # (AUTO) 8.7 K/uL (1.8-8.9); NEUTROPHILS % (AUTO) 85.4 % (43.0-81.0); PLATELET COUNT (AUTO) 254 K/uL (150-450); RED BLOOD CELL COUNT(AUTO) 5.07 MIL/uL (4.5-6.0); WHITE BLOOD COUNT (AUTO) 10.2 K/uL (4.3-11.0)
--- NOTE | 2021-10-14 15:48 | NUR ---
BLOOD DRAWN, RAPID ANTIGEN SWAB SENT TO LAB
[2021-10-14 16:34] LABS: ALBUMIN 4.1 g/dL (3.4-5.0); BILIRUBIN,DIRECT 0.1 mg/dL (0.0-0.2); BILIRUBIN,TOTAL 0.4 mg/dL (0.2-1.0); CALCIUM, SERUM 9.2 mg/dL (8.5-10.1); CREATININE 1.1 mg/dL (0.6-1.3); POTASSIUM 3.9 mmol/L (3.5-5.1); TOTAL PROTEIN, SERUM 7.6 g/dL (6.4-8.2)
--- NOTE | 2021-10-14 18:50 | NUR ---
Patient discharged to home in stable condition. Written and verbal after care instructions given. Patient verbalizes understanding of instruction.
[2021-10-14 19:17] VITALS: BP 126/75
== END 2021-10-14 18:50 | disposition home or self-care (01) ==
LOC: ER 15:00
DX: R00.2 Palpitations (principal); E86.0 Dehydration
CPT/HCPCS: 36415; 70450; 71045; 80048; 80076; 82962; 85025; 85730; 87804 ×2; 93005; 96360; 99285; J7030

== ENCOUNTER 2022-04-28 07:04 | Outpatient (CLI) | payer BC, OTHER ==
[2022-04-28 09:39] LABS: BASOPHILS % (AUTO) 0.4 % (0.0-2.0); EOSINOPHILS % (AUTO) 2.7 % (0.0-6.0); HEMATOCRIT 43 % (39-51); HEMOGLOBIN 14.2 g/dL (13.5-17.5); LYMPHOCYTES # (AUTO) 1.8 K/uL (0.8-4.8); LYMPHOCYTES % (AUTO) 25.2 % (20.0-44.0); MEAN CORPUSCULAR HGB CONC 33 g/dl (31.0-36.0); MEAN CORPUSCULAR VOLUME 85 fL (80-96); MONOCYTES # (AUTO) 0.5 K/uL (0.1-1.30); MONOCYTES % (AUTO) 7.4 % (2.0-12.0); NEUTROPHILS # (AUTO) 4.6 K/uL (1.8-8.9); NEUTROPHILS % (AUTO) 64.3 % (43.0-81.0); PLATELET COUNT (AUTO) 277 K/uL (150-450); RED BLOOD CELL COUNT(AUTO) 5.05 MIL/uL (4.5-6.0); WHITE BLOOD COUNT (AUTO) 7.2 K/uL (4.3-11.0)
[2022-04-28 11:01] LABS: PROSTATE SPECIFIC ANTIGEN SCR 18.5 ng/mL (0.00-4.00); URIC ACID 4.6 mg/dL (2.6-7.2)
[2022-04-28 11:12] LABS: ALBUMIN 3.8 g/dL (3.4-5.0); BILIRUBIN,TOTAL 0.5 mg/dL (0.2-1.0); CALCIUM, SERUM 8.7 mg/dL (8.5-10.1); CREATININE 1.2 mg/dL (0.6-1.3); POTASSIUM 4.2 mmol/L (3.5-5.1)
[2022-04-28 11:33] LABS: BILIRUBIN,URINE NEGATIVE (NEGATIVE); COLOR,URINE YELLOW (YELLOW); LEUKOCYTE ESTERASE ,URINE NEGATIVE (NEGATIVE); NITRITE, URINE NEGATIVE (NEGATIVE); PH,URINE 5.5 (5.0-8.0); PROTEIN,URINE NEGATIVE (NEGATIVE); UGLUCOSE NEGATIVE (NEGATIVE); UROBILINOGEN,URINE 0.2 EU/dL (0.2)
== END 2022-04-28 23:59 | disposition home or self-care (01) ==
LOC: LAB 07:04
PROVIDERS: ATTEND Legal Medicine
DX: Z00.00 Encounter for general adult medical examination without abnormal findings (principal); R53.1 Weakness; D64.9 Anemia, unspecified; I10 Essential (primary) hypertension; N40.0 Benign prostatic hyperplasia without lower urinary tract symptoms; E55.9 Vitamin D deficiency, unspecified; E03.9 Hypothyroidism, unspecified
CPT/HCPCS: 36415; 80053-TC; 80061-TC; 82306; 82607-TC; 82728-TC; 83540-TC; 84153-TC; 84402; 84403; 84439-TC; 84550-TC; 85025-TC; 87086-TC

== ENCOUNTER 2022-08-18 12:00 | Outpatient (CLI) | payer BC, OTHER ==
[2022-08-18 16:33] LABS: BILIRUBIN,URINE NEGATIVE (NEGATIVE); COLOR,URINE YELLOW (YELLOW); LEUKOCYTE ESTERASE ,URINE NEGATIVE (NEGATIVE); NITRITE, URINE NEGATIVE (NEGATIVE); PROTEIN,URINE NEGATIVE (NEGATIVE); UGLUCOSE NEGATIVE (NEGATIVE); UROBILINOGEN,URINE 0.2 EU/dL (0.2)
[2022-08-18 16:42] LABS: BASOPHILS # (AUTO) 0.1 K/uL (0.0-0.2); BASOPHILS % (AUTO) 1.1 % (0.0-2.0); EOSINOPHILS % (AUTO) 2.3 % (0.0-6.0); HEMATOCRIT 44 % (39-51); HEMOGLOBIN 14.6 g/dL (13.5-17.5); LYMPHOCYTES # (AUTO) 1.8 K/uL (0.8-4.8); LYMPHOCYTES % (AUTO) 23.5 % (20.0-44.0); MEAN CORPUSCULAR HGB CONC 33 g/dl (31.0-36.0); MEAN CORPUSCULAR VOLUME 85 fL (80-96); MONOCYTES # (AUTO) 0.4 K/uL (0.1-1.30); MONOCYTES % (AUTO) 5.1 % (2.0-12.0); NEUTROPHILS # (AUTO) 5.1 K/uL (1.8-8.9); PLATELET COUNT (AUTO) 305 K/uL (150-450); RED BLOOD CELL COUNT(AUTO) 5.25 MIL/uL (4.5-6.0); WHITE BLOOD COUNT (AUTO) 7.5 K/uL (4.3-11.0)
[2022-08-18 17:06] LABS: THYROID STIMULATING HORMONE 2.93 uIU/mL (0.358-3.74); URIC ACID 4.4 mg/dL (2.6-7.2)
[2022-08-18 17:23] LABS: ALBUMIN 3.9 g/dL (3.4-5.0); BILIRUBIN,TOTAL 0.6 mg/dL (0.2-1.0); CALCIUM, SERUM 9.1 mg/dL (8.5-10.1); POTASSIUM 3.7 mmol/L (3.5-5.1); TOTAL PROTEIN, SERUM 7.2 g/dL (6.4-8.2)
== END 2022-08-18 23:59 | disposition home or self-care (01) ==
LOC: LAB 12:00
PROVIDERS: ATTEND Legal Medicine
DX: Z00.00 Encounter for general adult medical examination without abnormal findings (principal); E03.9 Hypothyroidism, unspecified; N40.0 Benign prostatic hyperplasia without lower urinary tract symptoms; N18.9 Chronic kidney disease, unspecified; E78.00 Pure hypercholesterolemia, unspecified; D64.9 Anemia, unspecified
CPT/HCPCS: 36415; 80053-TC; 80061-TC; 82607-TC; 83540-TC; 84153-TC; 84402; 84403; 84439-TC; 84443-TC; 84550-TC; 85025-TC

== ENCOUNTER 2023-12-16 15:54 | Emergency (ER) | payer BC, OTHER ==
[~2023-12-16] VITALS: Ht 167.6 cm; Wt 63.5 kg
[2023-12-16 16:02] VITALS: TEMP 97.4
[2023-12-16] MEDS ORDERED: CLONIDINE HCL 0.1 MG TABLET ONE (16:32)
[2023-12-16] MEDS: CLONIDINE HCL 0.1 MG TABLET PO ONE (16:45)
[2023-12-16 19:59] VITALS: BP 138/75; O2SAT 100
== END 2023-12-16 19:45 | disposition home or self-care (01) ==
LOC: ER 15:54
DX: S09.8XXA Other specified injuries of head, initial encounter (principal); W22.8XXA Striking against or struck by other objects, initial encounter; Y93.89 Activity, other specified; Y92.89 Other specified places as the place of occurrence of the external cause; Y99.0 Civilian activity done for income or pay
CPT/HCPCS: 70450-TC

== ENCOUNTER 2024-08-01 08:55 | Outpatient (CLI) | payer BC ==
[2024-08-01 17:51] LABS: BASOPHILS # (AUTO) 0.1 K/uL (0.0-0.2); BASOPHILS % (AUTO) 0.8 % (0.0-2.0); EOSINOPHILS # (AUTO) 0.3 K/uL (0.0-0.7); EOSINOPHILS % (AUTO) 3.3 % (0.0-6.0); HEMATOCRIT 43 % (39-51); LYMPHOCYTES # (AUTO) 1.8 K/uL (0.8-4.8); LYMPHOCYTES % (AUTO) 21.5 % (20.0-44.0); MEAN CORPUSCULAR HEMOGLOBIN 29 PG (26.0-33.0); MEAN CORPUSCULAR HGB CONC 35 g/dl (31.0-36.0); MEAN CORPUSCULAR VOLUME 84 fL (80-96); MONOCYTES # (AUTO) 0.6 K/uL (0.1-1.30); MONOCYTES % (AUTO) 7.2 % (2.0-12.0); NEUTROPHILS # (AUTO) 5.7 K/uL (1.8-8.9); NEUTROPHILS % (AUTO) 67.2 % (43.0-81.0); PLATELET COUNT (AUTO) 291 K/uL (150-450); RED BLOOD CELL COUNT(AUTO) 5.09 MIL/uL (4.5-6.0); RED CELL DISTRIBUTION WIDTH 14.1 % (11.5-15.0); WHITE BLOOD COUNT (AUTO) 8.5 K/uL (4.3-11.0)
[2024-08-01 17:58] LABS: APPEARANCE,URINE CLEAR (CLEAR); BILIRUBIN,URINE NEGATIVE (NEGATIVE); BLOOD, URINE NEGATIVE Ery/uL (NEGATIVE); COLOR,URINE YELLOW (YELLOW); KETONES,URINE NEGATIVE (NEGATIVE); LEUKOCYTE ESTERASE ,URINE NEGATIVE (NEGATIVE); NITRITE, URINE NEGATIVE (NEGATIVE); PROTEIN,URINE NEGATIVE (NEGATIVE); UGLUCOSE NEGATIVE (NEGATIVE); UROBILINOGEN,URINE 0.2 EU/dL (0.2)
[2024-08-01 18:22] LABS: FREE PSA 2.08 ng/mL (0.00-45); FREE T4 (FREE THYROXINE) 0.84 ng/dL (0.76-1.46); PROSTATE SPECIFIC ANTIGEN SCR 22.75 ng/mL (0.00-4.00); THYROID STIMULATING HORMONE 2.1 uIU/mL (0.358-3.74)
[2024-08-01 18:32] LABS: BILIRUBIN,TOTAL 0.5 mg/dL (0.2-1.0); CALCIUM, SERUM 9.1 mg/dL (8.5-10.1); CREATININE 1.1 mg/dL (0.6-1.3); TOTAL PROTEIN, SERUM 7.7 g/dL (6.4-8.2)
[2024-08-04 23:09] LABS: FOLIC ACID 13.5 ng/mL (>3.0); VIT D, 25-HYDROXY 53.1 ng/mL (30.0-100.0)
[2024-08-07 01:07] LABS: *TESTOSTERONE, FREE (DIRECT) 3.9 pg/mL (6.6-18.1)
== END 2024-08-01 23:59 | disposition home or self-care (01) ==
LOC: LAB 08:55
PROVIDERS: ATTEND Legal Medicine
DX: E11.9 Type 2 diabetes mellitus without complications (principal); R53.1 Weakness; I10 Essential (primary) hypertension; Z00.00 Encounter for general adult medical examination without abnormal findings; D64.9 Anemia, unspecified; E03.9 Hypothyroidism, unspecified; E55.9 Vitamin D deficiency, unspecified
CPT/HCPCS: 36415; 80053-TC; 80061-TC; 82306; 82607-TC; 82728-TC; 83540-TC; 84153-TC; 84154-TC; 84402-TC; 84439-TC; 84443-TC; 84550-TC; 85025-TC

== ENCOUNTER 2024-08-15 13:32 | Emergency (ER) | payer BC ==
[~2024-08-15] VITALS: Ht 177.8 cm; Wt 85.3 kg
[2024-08-15 14:33] LABS: CALCIUM, SERUM 9.4 mg/dL (8.5-10.1); CARBON DIOXIDE 29 mmol/L (21-32); CHLORIDE 102 mmol/L (98-107); GLUCOSE 101 mg/dL (74-106); POTASSIUM 3.9 mmol/L (3.5-5.1); SODIUM SERUM 139 mmol/L (136-145); UREA NITROGEN, BLOOD 21 mg/dL (7-18)
[2024-08-15 14:39] LABS: BASOPHILS # (AUTO) 0.1 K/uL (0.0-0.2); BASOPHILS % (AUTO) 0.8 % (0.0-2.0); EOSINOPHILS # (AUTO) 0.2 K/uL (0.0-0.7); EOSINOPHILS % (AUTO) 2.9 % (0.0-6.0); HEMATOCRIT 45 % (39-51); LYMPHOCYTES # (AUTO) 1.6 K/uL (0.8-4.8); MEAN CORPUSCULAR HEMOGLOBIN 28 PG (26.0-33.0); MEAN CORPUSCULAR HGB CONC 34 g/dl (31.0-36.0); MEAN CORPUSCULAR VOLUME 84 fL (80-96); MONOCYTES # (AUTO) 0.7 K/uL (0.1-1.30); MONOCYTES % (AUTO) 8.3 % (2.0-12.0); NEUTROPHILS # (AUTO) 5.4 K/uL (1.8-8.9); PLATELET COUNT (AUTO) 279 K/uL (150-450); RED BLOOD CELL COUNT(AUTO) 5.33 MIL/uL (4.5-6.0); RED CELL DISTRIBUTION WIDTH 14.1 % (11.5-15.0)
[2024-08-15 15:59] VITALS: BP 129/84; TEMP 98; O2SAT 98
== END 2024-08-15 16:01 | disposition home or self-care (01) ==
LOC: ER 13:34
DX: I16.0 Hypertensive urgency (principal); Z88.1 Allergy status to other antibiotic agents; Z88.2 Allergy status to sulfonamides; Z60.2 Problems related to living alone
CPT/HCPCS: 36415; 71045-TC; 80048-TC; 84484-TC; 85025-TC